=== PATIENT | female | born 1990 | race Caucasian/White ===

== ENCOUNTER → 2023-04-16 12:21 | Outpatient (REF) | payer BC, SELFPAY | LOC: REG 12:21 | PROVIDERS: ATTENDING PHYSICIAN Obstetrics & Gynecology; FAMILY PHYSICIAN Student in an Organized Health Care Education/Training Program | DX: Z33.1 Pregnant state, incidental (principal); R10.9 Unspecified abdominal pain | CPT/HCPCS: 84702 ==

== ENCOUNTER 2023-05-31 06:05 | Day surgery (SDC) | payer BC, SELFPAY ==
[2023-05-31] VITALS (8 sets, daily range): BP systolic 80–124; BP diastolic 41–76; BMI 27.4
[2023-05-31] MEDS: VIBRAMYCIN 260 MG IV (06:50)
[2023-05-31 07:09] LABS: % Eosinophils 5.1 % (0-6); % Immature Granulocytes 0.4 % (0-0.5); % Lymphocytes 32.6 % (20.5-51.1); % Monocytes 6.3 % (1.7-9.3); % Neutrophils 54.6 % (42.2-75.2); Absolute Basophils 0.1 10^3/uL (0-0.2); Absolute Eosinophils 0.4 10^3/uL (0-0.7); Absolute Lymphocytes 2.2 10^3/uL (1.2-3.4); Absolute Monocytes 0.4 10^3/uL (0.1-0.6); Absolute Neutrophils 3.7 10^3/uL (1.4-6.5); Hematocrit 37.2 % (37.0-47.0); Hemoglobin 12.8 g/dL (12.0-16.0); Mean Corp Hgb Conc. 34.4 g/dL (33.0-37.0); Mean Corpuscular Hgb 30.5 pg (27.0-31.0); Mean Corpuscular Volume 88.6 fL (81.0-99.0); Mean Platelet Volume 11.7 fL (7.4-10.4); Nucleated Red Blood Cells % 0 %; Platelet Count 151 10^3/uL (130-400); Red Cell Dist. Width 12.8 % (11.5-14.5); White Blood Cell Count 6.9 10^3/uL (4.8-10.8)
[2023-05-31 07:22] LABS: INR 0.96
[2023-05-31] MEDS: DILAUDID 0.25 MG IV (08:30)
== END 2023-05-31 09:50 | disposition home or self-care (01) ==
LOC: SDS 06:05
PROVIDERS: ATTENDING PHYSICIAN Obstetrics & Gynecology; FAMILY PHYSICIAN Family Medicine
DX: O02.1 Missed abortion (principal)
CPT/HCPCS: 59820; 88305; 85025; 85610; 85730; 86850; 86900; 86901